=== PATIENT | female | born 1945 | race Caucasian/White ===

== ENCOUNTER → 2016-05-14 | Outpatient (CLI) | payer MEDICARE ==
--- NOTE | 2016-05-15 01:47 | REP ---
Clinical: Cervicalgia. Technique: AP, lateral, flexion/extension, bilateral oblique, and open-mouth views. Findings: Alignment and lordosis is maintained. There is no evidence for acute fracture / compression injury or subluxation. Moderate to advanced multilevel degenerative changes include osteophytosis, endplate sclerosis and disc space narrowing. Findings are most pronounced at the C4-5 and C5-6 levels. Oblique views demonstrate narrowing to the neural foramen due to hypertrophic facet changes. Open mouth view demonstrates normal C1-C2 articulation and odontoid process. Impression: Moderate to advanced multilevel degenerative disc osteophyte complexes. Signed by Brando Heredia MD 05/15/2016 01:38 A
== END | disposition home or self-care (01) ==
LOC: M SMT 14:12
PROVIDERS: ATTEND Physician Assistant
DX: M25.78 Osteophyte, vertebrae (principal)

== ENCOUNTER → 2017-06-16 | Outpatient (CLI) | payer MEDICARE | LOC: M SMT 13:47 | DX: M25.512 Pain in left shoulder (principal); M79.602 Pain in left arm | CPT/HCPCS: 73030 ==

== ENCOUNTER 2018-02-17 18:00 | Emergency (ER) | payer MEDICARE, OTHER ==
[2018-02-17 18:42] LABS: BASO % 0.4 % (0.0-1.0); HEMOGLOBIN 13.3 g/dl (12.0-15.5); IMMATURE GRANULOCYTE % 0.4 % (0-3.0); LYMPH # 1.7 10^3/uL (1.5-4.5); LYMPH % 18.1 % (24.0-44.0); MEAN CORPUSCULAR HEMOGLOBIN 34.4 pg (27.0-33.0); MEAN CORPUSCULAR HGB CONC 34.1 g/dl (32.0-36.5); MEAN CORPUSCULAR VOLUME 100.8 fl (80.0-96.0); MONO # 0.8 10^3/uL (0.0-0.8); MONO % 8.6 % (0.0-5.0); NEUTROPHILS # 6.9 10^3/uL (1.8-7.7); NEUTROPHILS % 72.5 % (36.0-66.0); PLATELET COUNT, AUTOMATED 232 10^3/uL (150-450); RED BLOOD COUNT 3.87 10^6/uL (4.00-5.40); RED CELL DISTRIBUTION WIDTH 11.9 % (11.5-14.5); WHITE BLOOD COUNT 9.5 10^3/uL (4.0-10.0)
[2018-02-17 19:02] LABS: AMMONIA < 10 uMOL/L (<32)
[2018-02-17 19:06] LABS: LACTIC ACID SEPSIS PROTOCOL 0.9 MMOL/L (0.4-2.0)
[2018-02-17 19:14] LABS: ALBUMIN 3.6 GM/DL (3.2-5.2); ALBUMIN/GLOBULIN RATIO 1.38 (1.00-1.93); ALKALINE PHOSPHATASE 75 U/L (45-117); ALT/SGPT 24 U/L (12-78); ANION GAP 8 MEQ/L (8-16); AST/SGOT 19 U/L (7-37); BILIRUBIN,DIRECT 0.2 MG/DL (0.0-0.2); BILIRUBIN,TOTAL 0.5 MG/DL (0.2-1.0); BLOOD UREA NITROGEN 7 MG/DL (7-18); CALCIUM LEVEL 8.2 MG/DL (8.8-10.2); CARBON DIOXIDE LEVEL 26 MEQ/L (21-32); CHLORIDE LEVEL 104 MEQ/L (98-107); CK-MB VALUE MASS < 1.0 NG/ML (<3.6); CPK CREATINE PHOSPHOKINASE 70 U/L (26-192); CREATININE FOR GFR 0.68 MG/DL (0.55-1.30); GLOMERULAR FILTRATION RATE > 60.0 (>39); GLUCOSE, FASTING 111 MG/DL (70-100); MB/CK RELATIVE INDEX 1.43 (< OR =4); POTASSIUM SERUM 3.9 MEQ/L (3.5-5.1); SODIUM LEVEL 138 MEQ/L (136-145); THYROID STIMULATING HORMONE 0.585 uIU/ML (0.358-3.740); TOTAL PROTEIN 6.2 GM/DL (6.4-8.2); TROPONIN I < 0.02 NG/ML (< 0.10)
[2018-02-17] MEDS ORDERED: ONDANSETRON 4MG/2ML VIAL (J2405) As Ordered ×2 (20:02)
[2018-02-17] MEDS: ACETAMINOPHEN TAB 650MG DOSE (2X325MG) PO ×2 (20:06)
[2018-02-17] MEDS: ONDANSETRON 4MG/2ML VIAL (J2405) IV ×2 (20:06)
[2018-02-17] MEDS: KETOROLAC 30 MG/ML VIAL (J1885) IV ×2 (20:06)
[2018-02-17 20:40] LABS: KETONE, URINE AUTO RFX 1+ mg/dL (NEGATIVE); MUCUS, URINE RFX SMALL (NEGATIVE); NITRITE, URINE AUTO RFX NEGATIVE (NEGATIVE); RBC, URINE AUTO RFX 20 /HPF (0-3); SQUAM EPITHELIAL CELL UR AURFX 2 /HPF (0-6); WBC, URINE AUTO RFX 8 /HPF (0-3)
[2018-02-17 20:41] LABS: LEUKOCYTE ESTERASE UR AUTO RFX 2+ (NEGATIVE)
[2018-02-17] MEDS: CIPROFLOXACIN 500 MG TAB PO ×2 (23:23)
== END 2018-02-18 00:03 | disposition home or self-care (01) ==
LOC: M ED 02-18 00:03
DX: N39.0 Urinary tract infection, site not specified (principal); R50.9 Fever, unspecified; R51 Headache; D32.0 Benign neoplasm of cerebral meninges; E78.5 Hyperlipidemia, unspecified; M19.90 Unspecified osteoarthritis, unspecified site; Z79.899 Other long term (current) drug therapy; Z88.0 Allergy status to penicillin
CPT/HCPCS: J2405

== ENCOUNTER 2018-02-18 15:00 | Emergency (ER) | payer OTHER ==
[2018-02-18] MEDS: NS 500 ML IV (16:46)
[2018-02-18] MEDS: KETOROLAC 30 MG/ML VIAL (J1885) IV (16:46)
[2018-02-18] MEDS: diphenhydrAMINE INJ 50MG/ML VIAL (J1200) IV (16:46)
[2018-02-18] MEDS: METOCLOPRAMIDE INJ 10MG/2ML VIAL (J2765) IV (16:46)
[2018-02-18 16:59] LABS: BASO % 0.3 % (0.0-1.0); HEMATOCRIT 39.4 % (36.0-47.0); HEMOGLOBIN 13.4 g/dl (12.0-15.5); IMMATURE GRANULOCYTE % 0.4 % (0-3.0); LYMPH # 1.3 10^3/uL (1.5-4.5); LYMPH % 11.5 % (24.0-44.0); MEAN CORPUSCULAR HEMOGLOBIN 34.1 pg (27.0-33.0); MEAN CORPUSCULAR VOLUME 100.3 fl (80.0-96.0); MONO # 0.8 10^3/uL (0.0-0.8); NEUTROPHILS # 8.8 10^3/uL (1.8-7.7); NEUTROPHILS % 80.8 % (36.0-66.0); PLATELET COUNT, AUTOMATED 237 10^3/uL (150-450); RED BLOOD COUNT 3.93 10^6/uL (4.00-5.40); RED CELL DISTRIBUTION WIDTH 11.6 % (11.5-14.5); WHITE BLOOD COUNT 10.9 10^3/uL (4.0-10.0)
[2018-02-18 17:19] LABS: ANION GAP 7 MEQ/L (8-16); BLOOD UREA NITROGEN 12 MG/DL (7-18); CALCIUM LEVEL 8.5 MG/DL (8.8-10.2); CARBON DIOXIDE LEVEL 27 MEQ/L (21-32); CHLORIDE LEVEL 100 MEQ/L (98-107); CREATININE FOR GFR 0.64 MG/DL (0.55-1.30); GLOMERULAR FILTRATION RATE > 60.0 (>39); GLUCOSE, FASTING 114 MG/DL (70-100); POTASSIUM SERUM 4.2 MEQ/L (3.5-5.1); SODIUM LEVEL 134 MEQ/L (136-145)
[2018-02-18 17:22] LABS: LACTIC ACID SEPSIS PROTOCOL 0.8 MMOL/L (0.4-2.0)
[2018-02-18] MEDS: ACETAMINOPHEN 325 MG TAB PO (17:39)
== END 2018-02-18 18:12 | disposition home or self-care (01) ==
LOC: M ED 15:00
DX: N39.0 Urinary tract infection, site not specified (principal); R51 Headache; F33.9 Major depressive disorder, recurrent, unspecified; F41.9 Anxiety disorder, unspecified; M48.00 Spinal stenosis, site unspecified; Z79.899 Other long term (current) drug therapy; Z88.0 Allergy status to penicillin
CPT/HCPCS: J1200

== ENCOUNTER → 2018-10-11 | Outpatient (CLI) | payer OTHER ==
[~2018-10-11] MED LIST: ALEV220C2 PO; ATOR40TA75 PO; CIPR-249 PO; DULO1CAP4 PO; DULO30CA9 PO; FISH7.5C PO; IBUP200T45 PO; K-TA10TA2 PO; REST0.05 OP; VITA-176 PO; XALA0.007 OP; ZOFR4TAB14 SL; areds2 OP; sinex PO
== END ==
LOC: M SMT 13:37
PROVIDERS: ATTEND Advanced Practice Midwife
DX: Z13.79 Encounter for other screening for genetic and chromosomal anomalies (principal)

== ENCOUNTER → 2020-01-17 | Outpatient (CLI) | payer OTHER | LOC: M WHC 18:19 | PROVIDERS: ATTEND Advanced Practice Midwife | DX: Z53.9 Procedure and treatment not carried out, unspecified reason (principal); M85.80 Other specified disorders of bone density and structure, unspecified site ==

== ENCOUNTER → 2020-09-10 | Outpatient (CLI) | payer OTHER ==
--- NOTE | 2020-09-10 13:54 | REPPI ---
INDICATION: M54.2 CERVICALGIA COMPARISON: 05/14/2016 TECHNIQUE: AP, lateral, flexion/extension, bilateral oblique, swimmer's and open-mouth views. FINDINGS: Alignment and lordosis maintained. No evidence for acute fracture/compression injury or subluxation. Advanced multilevel degenerative changes include endplate sclerosis, disc space narrowing, osteophytosis, and facet hypertrophy. Spinous processes are intact. Prevertebral soft tissues are normal. Oblique views demonstrate scattered elements of neural foraminal narrowing. C1-C2 articulation and odontoid process are grossly normal. IMPRESSION: Advanced multilevel degenerative spondylosis mildly progressive as compared to prior examination. No acute fracture/compression injury or subluxation. <Electronically signed by Bradno Heredia > 09/10/20 [id number]
== END ==
LOC: M PLAIMG 10:22
PROVIDERS: ATTEND Physician Assistant
DX: M47.812 Spondylosis without myelopathy or radiculopathy, cervical region (principal)

== ENCOUNTER → 2020-12-24 | Outpatient (CLI) | payer MEDICARE ==
--- NOTE | 2020-12-24 13:29 | REP ---
INDICATION: PAIN IN RIGHT WRIST. COMPARISON: None. TECHNIQUE: Four views. FINDINGS: Advanced appearing degenerative changes seen involving the 1st carpometacarpal joint with asymmetric joint space narrowing, subchondral sclerosis, and marginal osteophytosis. There is no evidence of an acute fracture, dislocation, or subluxation. IMPRESSION: Chronic changes as described above. <Electronically signed by Yoshi Graham > 12/24/20 [id number]
--- NOTE | 2020-12-24 13:36 | REP ---
INDICATION: PAIN IN RIGHT WRIST. COMPARISON: None. TECHNIQUE: Four views FINDINGS: . There is rather marked appearing asymmetric intra digital joint space narrowing affecting particularly the 1st through 3rd digits and slightly less advanced involving the 4th and 5th digits. This is seen with prominent marginal osteophytosis. There is evidence of medial subluxation of the proximal interphalangeal joints of digits 2 through 4. Bones appear somewhat demineralized,, there is no anel periarticular osteopenia. There is no evidence of an acute fracture. Marginal osteophyte formation is seen involving the 1st and 2nd metacarpal heads. IMPRESSION: Chronic changes as described above. <Electronically signed by Yoshi Graham > 12/24/20 [id number]
[2020-12-24 16:11] LABS: ALBUMIN 3.9 GM/DL (3.2-5.2); ALT/SGPT 24 U/L (12-78); BILIRUBIN,TOTAL 0.5 MG/DL (0.2-1.0); BLOOD UREA NITROGEN 8 MG/DL (7-18); CALCIUM LEVEL 8.9 MG/DL (8.8-10.2); CARBON DIOXIDE LEVEL 29 MEQ/L (21-32); CHLORIDE LEVEL 103 MEQ/L (98-107); CHOLESTEROL LEVEL 168 MG/DL (< 200); CPK CREATINE PHOSPHOKINASE 79 U/L (26-192); CREATININE FOR GFR 0.57 MG/DL (0.55-1.30); GLOMERULAR FILTRATION RATE > 60.0 (>39); GLUCOSE, FASTING 81 MG/DL (70-100); LDH LACTATE DEHYDROGENASE 209 U/L (84-246); PHOSPHORUS LEVEL 3.8 MG/DL (2.5-4.9); POTASSIUM SERUM 4.4 MEQ/L (3.5-5.1); RHEUMATOID FACTOR QUANT < 10.0 IU/ML (<15.0); SODIUM LEVEL 138 MEQ/L (136-145); TOTAL PROTEIN 6.3 GM/DL (6.4-8.2); TRIGLYCERIDES LEVEL 52 MG/DL (<150); URIC ACID 2.2 MG/DL (2.6-6.0)
== END ==
LOC: M PLAIMG 12:28
PROVIDERS: ATTEND Family Medicine
DX: M25.531 Pain in right wrist (principal)

== ENCOUNTER → 2022-02-12 | Outpatient (CLI) | payer MEDICARE ==
[~2022-02-12] MED LIST changes: +FISH10005 PO; -FISH7.5C PO; -IBUP200T45 PO; +IBUP200T46 PO
== END ==
LOC: M WHC 14:01
PROVIDERS: ATTEND Family Medicine
DX: M81.0 Age-related osteoporosis without current pathological fracture (principal)

== ENCOUNTER → 2022-04-19 | Outpatient (CLI) | payer MEDICARE ==
[~2022-04-19] MED LIST changes: +ALEN70SO2 PO; +ALEV220T22 PO; +ATOR1TAB21 PO; +AZEL205.5 NS; +B-12100010 PO; +ECOT81TA5 PO; +GNP250TA9 PO; +MIRA3350 PO; +PRES1CHW PO; +VITA100093 PO
== END ==
LOC: M LABSMTC 10:16
PROVIDERS: ATTEND Anesthesiology
DX: Z01.812 Encounter for preprocedural laboratory examination (principal); Z11.52 Encounter for screening for COVID-19

== ENCOUNTER 2022-04-22 08:40 | Day surgery (SDC) | payer MEDICARE ==
[~2022-04-22] VITALS: Ht 144.8 cm; Wt 46.3 kg
[~2022-04-22 08:40] MED LIST changes: +NS 1,000 ML IV ONE
[2022-04-22] MEDS ORDERED: propofoL 200 MG/20 ML VIAL As Ordered ONE (09:27)
[2022-04-22] MEDS ORDERED: LIDOCAINE 2% 100MG/5ML SDV (FOR ANES.) As Ordered ONE (09:27)
[2022-04-22] MEDS ORDERED: ePHEDrine SULFATE 25 MG/5 ML(5MG/ML) SYRINGE As Ordered ONE (09:57)
[2022-04-22 10:25] VITALS: BP 131/61
== END 2022-04-22 10:33 | disposition home or self-care (01) ==
LOC: M OPP 08:40
PROVIDERS: ATTEND Internal Medicine Gastroenterology
DX: Z12.11 Encounter for screening for malignant neoplasm of colon (principal); K64.0 First degree hemorrhoids; K57.30 Diverticulosis of large intestine without perforation or abscess without bleeding; Z79.02 Long term (current) use of antithrombotics/antiplatelets; Z79.1 Long term (current) use of non-steroidal anti-inflammatories (NSAID); Z79.82 Long term (current) use of aspirin; E78.00 Pure hypercholesterolemia, unspecified; F32.9 Major depressive disorder, single episode, unspecified; F41.9 Anxiety disorder, unspecified; Z86.73 Personal history of transient ischemic attack (TIA), and cerebral infarction without residual deficits; Z85.828 Personal history of other malignant neoplasm of skin; Z87.891 Personal history of nicotine dependence

== ENCOUNTER → 2023-07-27 | Outpatient (REF) | payer MEDICARE ==
[~2023-07-27] MED LIST changes: -K-TA10TA2 PO; -NS 1,000 ML IV ONE; +POTA-165 PO
== END ==
LOC: M SFHCDERM 13:17
PROVIDERS: ATTEND Nurse Practitioner Family
DX: D04.39 Carcinoma in situ of skin of other parts of face (principal); L57.0 Actinic keratosis

== ENCOUNTER → 2023-11-01 | Outpatient (CLI) | payer MEDICARE | LOC: M PLAIMG 08:45 | PROVIDERS: ATTEND Physician Assistant | DX: I69.311 Memory deficit following cerebral infarction (principal) ==

== ENCOUNTER → 2024-02-14 | Outpatient (CLI) | payer MEDICARE | LOC: M WHC 11:01 | PROVIDERS: ATTEND Family Medicine | DX: M81.0 Age-related osteoporosis without current pathological fracture (principal) ==

== ENCOUNTER → 2025-02-01 | Outpatient (REF) | payer MEDICARE | LOC: M SFHCDERM 17:30 | PROVIDERS: ATTEND Nurse Practitioner Family | DX: L82.0 Inflamed seborrheic keratosis (principal) ==